=== PATIENT | male | born 1945 | race Caucasian/White ===

== ENCOUNTER 2025-01-09 14:08 | Outpatient (CLI) | payer OTHER ==
[~2025-01-09 14:08] MED LIST: barium sulfate 340gm for oral suspension 1 BOTTLE SUSP.RECON PO ONE
== END 2025-01-09 23:59 | disposition home or self-care (01) ==
LOC: RAD 14:08
PROVIDERS: ATTEND Orthopaedic Surgery
DX: R13.10 Dysphagia, unspecified (principal)
CPT/HCPCS: 74220